=== PATIENT | female | born 1960 | race Two or more races ===

== ENCOUNTER 2019-05-28 11:44 | Outpatient (CLI) | payer OTHER | END 2019-06-01 10:00 | disposition home or self-care (01) | LOC: RX STUDY 11:44 | DX: K59.09 Other constipation (principal) ==

== ENCOUNTER 2023-10-01 09:45 | Inpatient (IN) | payer OTHER ==
[~2023-10-01] VITALS: Ht 154.9 cm; Wt 65.8 kg
[2023-10-01 11:36] LABS: HEMATOCRIT 39.4 % (36.0-45.00); HEMOGLOBIN 13.5 g/dL (12.0-15.00); MEAN CORPUSCULAR HEMOGLOBIN 30.8 pg (27.00-32.0); MEAN CORPUSCULAR HGB CONC 34.2 g/dl (32.0-36.0); PLATELET COUNT 303 K/uL (150-450); RED BLOOD COUNT 4.38 M/uL (4.00-6.00); RED CELL DISTRIBUTION WIDTH 13.5 % (11.5-14.5)
[2023-10-01 11:51] LABS: PH,URINE 5.5 (5.0-8.0); URINE APPEARANCE Clear; URINE BILIRRUBIN Negative (NEGATIVE); URINE BLOOD Negative; URINE COLOR Yellow; URINE GLUCOSE Negative (NEGATIVE); URINE LEUKOCYTE Negative; URINE NITRATE Negative; URINE PROTEIN Negative (NEGATIVE); URINE UROBILINOGEN 0.2 E.U./dl
[2023-10-01 11:56] LABS: URINE BACTERIA 16.3 uL (0.0-1933); URINE EPITHELIAL CELLS 3.8 uL (0.0-38.8)
[2023-10-01 12:02] LABS: INR 0.97; PARTIAL THROMBOPLASTIN TIME 27.1 SECONDS (22.0-34.0); PROTHROMBIN TIME 10.2 SECONDS (9.0-11.5)
[2023-10-01] MEDS ORDERED: SYNTHROID50 MCG PO (12:06)
[2023-10-01] MEDS ORDERED: VERAP PO ×2 (12:07→12:09)
[2023-10-01] MEDS ORDERED: AVAPRO150 MG PO (12:07)
[2023-10-01] MEDS ORDERED: PLAVIX75 MG PO (12:08)
[2023-10-01] MEDS ORDERED: [UNRECOGNIZED DRUG - OTHER] PO (12:08)
[2023-10-01] MEDS ORDERED: METFORMIN HCL500 MG PO (12:08)
[2023-10-01] MEDS ORDERED: ATORVASTATIN CA40 MG PO (12:09)
[2023-10-01] MEDS ORDERED: ZETIA10 MG PO (12:09)
[2023-10-01 12:22] LABS: URINE RBC 0.5 uL (0.0-20.8)
[2023-10-01 12:40] LABS: ALBUMIN 3.9 gm/dL (3.4-5.0); BILIRUBIN TOTAL 0.4 mg/dL (0.3-1.2); CALCIUM 9.6 mg/dL (8.5-10.1); CREATININE SERUM 0.76 mg/dL (0.55-1.02); GFR 76.86; GLOBULINA 3.4 G/DL (2.4-3.5); POTASSIUM 4.27 mEq/L (3.5-5.1); TOTAL PROTEIN 7.3 gm/dL (6.4-8.2); TSH 1.5 uIU/mL (0.358-3.74)
[2023-10-05 23:34] LABS: HEMATOCRIT 39.1 % (36.0-45.00); HEMOGLOBIN 13.2 g/dL (12.0-15.00); MEAN CELL VOLUME 89.6 fL (80.00-100.00); MEAN CORPUSCULAR HEMOGLOBIN 30.3 pg (27.00-32.0); MEAN CORPUSCULAR HGB CONC 33.8 g/dl (32.0-36.0); PLATELET COUNT 285 K/uL (150-450); RED BLOOD COUNT 4.37 M/uL (4.00-6.00); RED CELL DISTRIBUTION WIDTH 13.5 % (11.5-14.5)
[2023-10-05 23:51] LABS: ALBUMIN 3.3 gm/dL (3.4-5.0); CALCIUM 8.9 mg/dL (8.5-10.1); CREATININE SERUM 0.78 mg/dL (0.55-1.02); GFR 74.59; PHOSPHOROUS 3.7 mg/dL (2.5-4.9); POTASSIUM 4.43 mEq/L (3.5-5.1)
[2023-10-06 00:09] LABS: MAGNESIUM 1.1 mg/dL (1.8-2.4)
[2023-10-06 07:38] LABS: HEMATOCRIT 38.2 % (36.0-45.00); HEMOGLOBIN 13.2 g/dL (12.0-15.00); MEAN CELL VOLUME 88.8 fL (80.00-100.00); MEAN CORPUSCULAR HEMOGLOBIN 30.6 pg (27.00-32.0); MEAN CORPUSCULAR HGB CONC 34.5 g/dl (32.0-36.0); PLATELET COUNT 267 K/uL (150-450); RED CELL DISTRIBUTION WIDTH 13.3 % (11.5-14.5)
[2023-10-06 07:46] LABS: ALBUMIN 3.1 gm/dL (3.4-5.0); CALCIUM 8.8 mg/dL (8.5-10.1); CREATININE SERUM 0.85 mg/dL (0.55-1.02); GFR 67.55; PHOSPHOROUS 3.1 mg/dL (2.5-4.9); POTASSIUM 4.49 mEq/L (3.5-5.1)
[2023-10-06 11:02] LABS: MAGNESIUM 1.3 mg/dL (1.8-2.4)
[2023-10-07 08:40] LABS: ALBUMIN 2.9 gm/dL (3.4-5.0); CALCIUM 8.3 mg/dL (8.5-10.1); CREATININE SERUM 0.59 mg/dL (0.55-1.02); GFR 102.94; PHOSPHOROUS 2.6 mg/dL (2.5-4.9); POTASSIUM 3.84 mEq/L (3.5-5.1)
[2023-10-07 08:56] LABS: HEMATOCRIT 32.9 % (36.0-45.00); HEMOGLOBIN 11.5 g/dL (12.0-15.00); MEAN CELL VOLUME 90.9 fL (80.00-100.00); MEAN CORPUSCULAR HEMOGLOBIN 31.8 pg (27.00-32.0); PLATELET COUNT 236 K/uL (150-450); RED BLOOD COUNT 3.62 M/uL (4.00-6.00); RED CELL DISTRIBUTION WIDTH 13.3 % (11.5-14.5)
[2023-10-08 14:27] LABS: ABG PH 7.413 (7.35-7.45); ABG PO2 68.6 mmHg (80-100); ABG pCO2 39.1 mmHg (35-45); BASE EXCESS 0 mmol/l; SaO2 93.7 %
[2023-10-08 14:28] LABS: BICARBONATE 24.4 mmol/l (23-25); Tco2 25.6 mmol/l; allen test SATISFACTORY; o2 21 %; puncture site RADIAL RIGHT
[2023-10-09 06:55] LABS: HEMATOCRIT 32.4 % (36.0-45.00); HEMOGLOBIN 11.1 g/dL (12.0-15.00); MEAN CELL VOLUME 90.4 fL (80.00-100.00); MEAN CORPUSCULAR HEMOGLOBIN 31.1 pg (27.00-32.0); MEAN CORPUSCULAR HGB CONC 34.4 g/dl (32.0-36.0); PLATELET COUNT 283 K/uL (150-450); RED BLOOD COUNT 3.58 M/uL (4.00-6.00); RED CELL DISTRIBUTION WIDTH 13.3 % (11.5-14.5)
[2023-10-09 07:19] LABS: ERYTHROCYTE SEDIMENTATION RATE 51 mm/hr
[2023-10-09 07:42] LABS: ALBUMIN 2.5 gm/dL (3.4-5.0); BILIRUBIN TOTAL 0.49 mg/dL (0.3-1.2); CALCIUM 8.6 mg/dL (8.5-10.1); CREATININE SERUM 0.67 mg/dL (0.55-1.02); GFR 88.89; GLOBULINA 2.8 G/DL (2.4-3.5); POTASSIUM 4.32 mEq/L (3.5-5.1); TOTAL PROTEIN 5.3 gm/dL (6.4-8.2)
[2023-10-13 07:49] LABS: HEMOGLOBIN 10.8 g/dL (12.0-15.00); MEAN CELL VOLUME 90.8 fL (80.00-100.00); MEAN CORPUSCULAR HEMOGLOBIN 31.6 pg (27.00-32.0); MEAN CORPUSCULAR HGB CONC 34.8 g/dl (32.0-36.0); PLATELET COUNT 407 K/uL (150-450); RED BLOOD COUNT 3.41 M/uL (4.00-6.00); RED CELL DISTRIBUTION WIDTH 13.6 % (11.5-14.5)
[2023-10-13 08:32] LABS: CALCIUM 8.4 mg/dL (8.5-10.1); CREATININE SERUM 0.65 mg/dL (0.55-1.02); GFR 92.06; MAGNESIUM 1.7 mg/dL (1.8-2.4); PHOSPHOROUS 2.8 mg/dL (2.5-4.9); POTASSIUM 3.91 mEq/L (3.5-5.1)
== END 2023-10-13 18:11 | disposition home or self-care (01) | DRG 330 ==
LOC: ADM 09:45 → SURG 10-05 07:00 → O/R 10-05 08:25 → SURG 10-05 08:25 → CIR.AMB 10-05 09:45 → EDSTATUS 10-05 09:45 → SURG 10-05 21:57 → SURH 10-12 15:21
PROVIDERS: Internal Medicine; ADMIT Colon & Rectal Surgery; ATTEND Colon & Rectal Surgery
PROC: 0DTK0ZZ Resection of Ascending Colon, Open Approach (ICD-10-PCS; 2023-10-05)
PROC: 0DN80ZZ Release Small Intestine, Open Approach (ICD-10-PCS; 2023-10-05)
PROC: 0DJD4ZZ Inspection of Lower Intestinal Tract, Percutaneous Endoscopic Approach (ICD-10-PCS; 2023-10-05)
PROC: 0DBB0ZZ Excision of Ileum, Open Approach (ICD-10-PCS; principal; 2023-10-05 07:00)
PROC: 4A12X4Z Monitoring of Cardiac Electrical Activity, External Approach (ICD-10-PCS; 2023-10-06)
PROC: BW21ZZZ Computerized Tomography (CT Scan) of Abdomen and Pelvis (ICD-10-PCS; 2023-10-10)
DX: K55.039 Acute (reversible) ischemia of large intestine, extent unspecified (principal); K63.3 Ulcer of intestine; T81.49XA Infection following a procedure, other surgical site, initial encounter; Y65.8 Other specified misadventures during surgical and medical care; K66.0 Peritoneal adhesions (postprocedural) (postinfection); Z20.822 Contact with and (suspected) exposure to COVID-19; I11.9 Hypertensive heart disease without heart failure; I25.10 Atherosclerotic heart disease of native coronary artery without angina pectoris